=== PATIENT | female | born 1955 | race Caucasian/White ===

== ENCOUNTER → 2020-10-31 | Outpatient (CLI) | payer OTHER ==
[~2020-10-31] MED LIST: LEVSOD75
== END | disposition home or self-care (01) ==
LOC: LAB 11:10
DX: H60.02 Abscess of left external ear (principal)
CPT/HCPCS: 87070; 87077; 87147; 87186

== ENCOUNTER 2023-12-17 08:17 | Day surgery (SDC) | payer OTHER ==
[~2023-12-17] VITALS: Ht 167.6 cm; Wt 88.7 kg
[2023-12-17] MEDS ORDERED: LOSA25 (08:42)
[2023-12-17] MEDS ORDERED: PRAV20 (08:42)
[2023-12-17 10:11] VITALS: BP 143/85
== END 2023-12-17 10:09 | disposition home or self-care (01) ==
LOC: ORSCSDS 08:17
PROVIDERS: Specialist
PROC: 0DJD8ZZ Inspection of Lower Intestinal Tract, Via Natural or Artificial Opening Endoscopic (ICD-10-PCS; principal; 2023-12-17 09:15)
DX: Z12.11 Encounter for screening for malignant neoplasm of colon (principal); Z86.010 Personal history of colon polyps; K21.9 Gastro-esophageal reflux disease without esophagitis; E03.9 Hypothyroidism, unspecified; E78.5 Hyperlipidemia, unspecified; Z79.899 Other long term (current) drug therapy
CPT/HCPCS: J2405; J2704; J7120